=== PATIENT | female | born 1955 | race Caucasian/White ===

== ENCOUNTER 2022-10-26 15:09 | Outpatient (CLI) | payer BC, SELFPAY ==
[2022-10-26 22:05] LABS: Total Protein Urine 10 mg/dL
[2022-10-26 22:07] LABS: Creatinine Urine 19.3 mg/dL
[2022-10-26 22:11] LABS: Microalbumin Creatinine Ratio 50 mg/g (0-30); Microalbumin Urine < 1 mg/dL
== END 2022-10-26 15:10 | disposition home or self-care (01) ==
PROVIDERS: PCP Family Medicine; Visit Provider Family Medicine
DX: E11.9 Type 2 diabetes mellitus without complications (principal)
CPT/HCPCS: 80053; 80061; 82043; 82570; 82607; 84156; 86803

== ENCOUNTER 2023-07-13 09:25 | Outpatient (CLI) | payer MEDICARE, BC, SELFPAY | END 2023-07-13 09:26 | disposition home or self-care (01) | PROVIDERS: PCP Family Medicine; Visit Provider Family Medicine | DX: E11.9 Type 2 diabetes mellitus without complications (principal) | CPT/HCPCS: 82043; 82570 ==

== ENCOUNTER 2024-02-07 16:45 | Outpatient (CLI) | payer MEDICARE, SELFPAY | END 2024-02-07 16:46 | disposition home or self-care (01) | LOC: NFLDREF 02-09 11:44 | PROVIDERS: PCP Family Medicine; Referring Provider Family Medicine; Visit Provider Family Medicine | DX: E78.5 Hyperlipidemia, unspecified (principal); I10 Essential (primary) hypertension; E11.9 Type 2 diabetes mellitus without complications; E66.9 Obesity, unspecified; J30.2 Other seasonal allergic rhinitis; R45.1 Restlessness and agitation; J44.9 Chronic obstructive pulmonary disease, unspecified | CPT/HCPCS: 80053; 80061; 82043; 82570 ==

== ENCOUNTER 2025-01-31 08:18 | Outpatient (CLI) | payer MEDICARE, MEDICAID, SELFPAY | END 2025-01-31 08:19 | disposition home or self-care (01) | PROVIDERS: PCP Family Medicine; Visit Provider Family Medicine | DX: E11.9 Type 2 diabetes mellitus without complications (principal); E78.5 Hyperlipidemia, unspecified; I10 Essential (primary) hypertension | CPT/HCPCS: 80053; 80061; 82043; 82570 ==